=== PATIENT | female | born 1985 | race Asian ===

== ENCOUNTER 2021-01-07 19:50 | Inpatient (IN) | payer MEDICAID, OTHER, SELFPAY ==
[2021-01-07 20:38] VITALS: BMI 33.4
[2021-01-07 20:44] LABS: Amnisure Test RUPTURE DETECTED (No Rupture)
[2021-01-07] MEDS ORDERED: Diphenoxylate HCl/Atropine Tablet PO PRN ×2 (21:38)
[2021-01-07] MEDS ORDERED: Methylergonovine 0.2 MG/ML VIAL IM PRN (21:38)
[2021-01-07] MEDS ORDERED: hydrALAZINE 20 MG/ML VIAL SLOW IVP PRN (21:38)
[2021-01-07] MEDS ORDERED: Misoprostol 200 MCG TAB PR PRN (21:38)
[2021-01-07] MEDS ORDERED: Ibuprofen 800 MG TAB PO PRN (21:38)
[2021-01-07] MEDS ORDERED: Ondansetron PF 4 MG/2 ML Vial IVP PRN (21:38)
[2021-01-07] MEDS ORDERED: Lidocaine 1% (PF) 30 ML VIAL SC PRN (21:38)
[2021-01-07] MEDS ORDERED: NS / Oxytocin 40 units/1000ml 1,000 ML IV PRN (21:38)
[2021-01-07] MEDS ORDERED: Butorphanol Tartrate 1 MG/ML VIAL SLOW IVP PRN (21:38)
[2021-01-07] MEDS ORDERED: Promethazine HCl 25 MG/ML VIAL IM PRN (21:38)
[2021-01-07] MEDS ORDERED: Zolpidem Tartrate 5 MG TAB PO PRN (21:38)
[2021-01-07] MEDS ORDERED: Carboprost 250 MCG/ML AMP IM PRN (21:38)
[2021-01-07] MEDS ORDERED: Acetaminophen 500 MG TAB PO PRN (21:38)
[2021-01-07] MEDS ORDERED: Docusate 100 MG CAP PO PRN (21:38)
[2021-01-07] MEDS ORDERED: HYDROcodone/Acetaminophen 5/325 mg Tablet PO PRN ×2 (21:38)
[2021-01-07] MEDS ORDERED: Lactated Ringer's 1,000 ML IV SCH (21:45)
[2021-01-07 22:29] LABS: Hemoglobin 12.9 g/dL (12.0-15.5); Mean Corpuscular HGB CONC 32.1 g/dL (32.0-36.0); Mean Corpuscular Volume 84.3 fl (81.6-98.3); Mean Platelet Volume 11.1 fl (7.4-10.4); Platelet Count 234 10x3/uL (150-450); RBC Distribution Width 14.8 % (11.5-14.5); Red Blood Cell (RBC) Count 4.77 10x6/uL (3.90-5.03); White Blood Cell (WBC) Count 12.8 10x3/uL (3.5-10.5)
[2021-01-07] MEDS: CEFAZOLIN 1 GM in Sodium Chloride 0.9% 100 ML IVPB SCH (22:38)
[2021-01-07] MEDS: Misoprostol 100 MCG TAB PO SCH (22:45)
[2021-01-07 22:52] LABS: Hep B Surf Ag Non-Reactive S/CO (NonReactive); Syphilis Antibody Nonreactive (Nonreactive); Syphilis Antibody Index 0.02 S/CO (<1.00 Non-Reactive)
[2021-01-07 22:57] LABS: HBSAg Index 0.13 S/CO (0-0.99)
[2021-01-08] MEDS: Misoprostol 100 MCG TAB PO SCH (05:55)
[2021-01-08] MEDS: CEFAZOLIN 1 GM in Sodium Chloride 0.9% 100 ML IVPB SCH (06:03)
[2021-01-08] MEDS ORDERED: NS w/ Oxytocin 30 units 500 ML ONE (06:22)
[2021-01-08] MEDS ORDERED: Fentanyl 4 mcg/Bup 0.1% Cadd 100 ML ONE (06:49)
[2021-01-08] MEDS ORDERED: NS w/ Oxytocin 30 units 500 ML IVPB SCH ×3 (07:00→14:30)
[2021-01-08] MEDS ORDERED: Lactated Ringer's 500 ML IV PRN (07:32)
[2021-01-08] MEDS ORDERED: Acetaminophen 325 MG TAB PO PRN (07:32)
[2021-01-08] MEDS ORDERED: ePHEDrine 50 MG/ML VIAL SLOW IVP PRN (07:32)
[2021-01-08] MEDS ORDERED: Promethazine HCl 25 MG/ML VIAL IM PRN ×2 (07:32→14:17)
[2021-01-08] MEDS ORDERED: Naloxone HCl 0.4 mg/ml Vial IVP PRN ×2 (07:32)
[2021-01-08] MEDS ORDERED: Ondansetron PF 4 MG/2 ML Vial IVP PRN ×2 (07:32→14:17)
[2021-01-08] MEDS ORDERED: Eucerin (Mineral Oil/Petrolatum,White) 30 gm Jar TOP PRN (07:32)
[2021-01-08] MEDS ORDERED: diphenhydrAMINE 50 MG/ML VIAL IVP PRN (07:32)
[2021-01-08] MEDS ORDERED: Communication Order-Pharmacy FS SCH (07:45)
[2021-01-08] MEDS ORDERED: Fentanyl 4 mcg/Bupivacaine 0.1% Cassette 100 ML EPIDURAL SCH (07:45)
[2021-01-08 13:32] LABS: SARS-CoV-2 NAA Rapid Test Not Detected (NotDetected)
[2021-01-08] MEDS ORDERED: Adacel (T-DAP) 0.5 ML SYRINGE IM ONE (14:17)
[2021-01-08] MEDS ORDERED: Varicella virus, LIVE 0.5 ML VIAL SC ONE (14:17)
[2021-01-08] MEDS ORDERED: Benzocaine-Menthol 82.5 ML CAN TOP PRN (14:17)
[2021-01-08] MEDS ORDERED: hydrALAZINE 20 MG/ML VIAL SLOW IVP PRN (14:17)
[2021-01-08] MEDS ORDERED: Measles/Mumps/Rubella 10 MCG/0.5 ML VIAL SC ONE (14:17)
[2021-01-08] MEDS ORDERED: Zolpidem Tartrate 5 MG TAB PO PRN (14:17)
[2021-01-08] MEDS ORDERED: Milk Of Magnesia 30 ML UDCUP PO PRN (14:17)
[2021-01-08] MEDS ORDERED: Methylergonovine 0.2 MG/ML VIAL IM PRN (14:17)
[2021-01-08] MEDS ORDERED: Bisacodyl 10 MG SUPP PR PRN (14:17)
[2021-01-08] MEDS ORDERED: HYDROcodone/Acetaminophen 5/325 mg Tablet PO PRN ×2 (14:17)
[2021-01-08] MEDS ORDERED: Lanolin Ointment 7 GM TUBE TOP PRN (14:17)
[2021-01-08] MEDS ORDERED: diphenhydrAMINE 25 MG CAP PO PRN (14:17)
[2021-01-08] MEDS ORDERED: Preparation H Ointment 28 GM TUBE PR PRN (14:17)
[2021-01-08] MEDS: Ferrous Sulfate 325 MG TAB PO SCH (15:23)
[2021-01-08] MEDS: Ibuprofen 800 MG TAB PO SCH (21:53)
[2021-01-09] MEDS: Docusate Calcium (SURFAK) 240 MG CAP PO SCH ×3 (04:01→22:08)
[2021-01-09] MEDS: Ibuprofen 800 MG TAB PO SCH ×3 (05:49→22:07)
[2021-01-09 06:36] LABS: Hemoglobin 11.4 g/dL (12.0-15.5); Mean Corpuscular HGB CONC 31.8 g/dL (32.0-36.0); Mean Corpuscular Hemoglobin 27.1 pg (27.0-33.0); Mean Corpuscular Volume 85.2 fl (81.6-98.3); Mean Platelet Volume 10.8 fl (7.4-10.4); Platelet Count 195 10x3/uL (150-450); RBC Distribution Width 15.1 % (11.5-14.5); White Blood Cell (WBC) Count 12.8 10x3/uL (3.5-10.5)
[2021-01-09] MEDS: Prenatal Vitamin 1 TAB PO SCH (08:13)
[2021-01-09] MEDS: Ferrous Sulfate 325 MG TAB PO SCH (18:45)
[2021-01-09] MEDS ORDERED: Bupivacaine 0.25% HCL 30 ML VIAL ONE (19:37)
[2021-01-10] MEDS: Ibuprofen 800 MG TAB PO SCH (06:01)
[2021-01-10 08:20] VITALS: BP 107/68; TEMP 98.1
[2021-01-10] MEDS: Docusate Calcium (SURFAK) 240 MG CAP PO SCH (11:07)
[2021-01-10] MEDS: Ferrous Sulfate 325 MG TAB PO SCH (11:07)
[2021-01-10] MEDS: Prenatal Vitamin 1 TAB PO SCH (11:07)
== END 2021-01-10 14:10 | disposition home or self-care (01) | DRG 807 ==
LOC: CSHLD/OP 19:50 → CSHLD 22:51 → CSHPP 01-08 16:30
PROVIDERS: ADMIT Obstetrics & Gynecology; ATTEND Obstetrics & Gynecology
PROC: 10E0XZZ Delivery of Products of Conception, External Approach (ICD-10-PCS; principal; 2021-01-09)
PROC: 0KQM0ZZ Repair Perineum Muscle, Open Approach (ICD-10-PCS; 2021-01-09)
PROC: 4A0HXCZ Measurement of Products of Conception, Cardiac Rate, External Approach (ICD-10-PCS; 2021-01-09)
DX: O42.013 Preterm premature rupture of membranes, onset of labor within 24 hours of rupture, third trimester (principal); Z37.0 Single live birth; Z3A.36 36 weeks gestation of pregnancy; O70.1 Second degree perineal laceration during delivery
CPT/HCPCS: 36415; 51702; 84112; 85027; 86780; 86850; 86900; 86901; 87340; 87635; 88307; 99285; J0690; J2590; J3490; S0020; U0002; U0003; U0005